=== PATIENT | male | born 1985 | race Two or more races ===

== ENCOUNTER 2016-04-14 03:55 | Emergency (ER) | payer MEDICAID ==
[~2016-04-14] VITALS: Ht 180.3 cm; Wt 104.3 kg
[2016-04-14] MEDS ORDERED: LIDOCAINE 1% INJ 50 ML MDV IJ ONE (06:30)
[2016-04-14 07:16] VITALS: BP 135/78
== END 2016-04-14 07:18 | disposition home or self-care (01) ==
LOC: ER 04:05
DX: S01.312A Laceration without foreign body of left ear, initial encounter (principal); W45.8XXA Other foreign body or object entering through skin, initial encounter; Y93.89 Activity, other specified; Y92.89 Other specified places as the place of occurrence of the external cause; Y99.8 Other external cause status; F17.200 Nicotine dependence, unspecified, uncomplicated
CPT/HCPCS: 13151; 99285; A4606; A6402 ×3; J3490; Z7610

== ENCOUNTER 2017-02-06 14:38 | Emergency (ER) | payer MEDICAID ==
[~2017-02-06] VITALS: Ht 172.7 cm; Wt 99.8 kg
[2017-02-06 15:03] VITALS: BP 112/98
[2017-02-06] MEDS ORDERED: IBUPROFEN 600 MG TABLET PO ONE (16:00)
== END 2017-02-06 15:49 | disposition home or self-care (01) ==
LOC: ER 14:40
DX: Z48.00 Encounter for change or removal of nonsurgical wound dressing (principal); B99.9 Unspecified infectious disease; F17.200 Nicotine dependence, unspecified, uncomplicated; F10.10 Alcohol abuse, uncomplicated
CPT/HCPCS: 99283; A4606; Z7610

== ENCOUNTER 2017-03-16 13:16 | Emergency (ER) | payer MEDICAID ==
[~2017-03-16] VITALS: Ht 180.3 cm; Wt 108.9 kg
--- NOTE | 2017-03-16 13:16 | NUR ---
PT AMBULATORY TO ER BED 11. ANXIOUS, RESTLESS, C/O L SIDED CP/PALPITATION S/P TAKING A TOTAL OF 4 PERCOCET. STATES TOOK 2 PERCOCET AT 1 HOUR INTERVAL. LAST 2 WAS AT 1030 TODAY. ADMIT TO BEEN DRINKING ALCOHOL SINCE LAST NIGHT. GOWNED AND PLACED ON MONITOR. AWAITING MD CAMPOS.
--- NOTE | 2017-03-16 13:20 | NUR ---
IV LINE STARTED BLOOD DRAWN AND SENT TO LAB.
[2017-03-16] MEDS ORDERED: ONDANSETRON HCL/PF 4 MG/2 ML VIAL ONE ×2 (13:51→16:19)
[2017-03-16 13:54] LABS: BASOPHILS # (AUTO) 0.1 /CMM (0.0-0.2); EOSINOPHILS # (AUTO) 0.2 /CMM (0.0-0.7); EOSINOPHILS % (AUTO) 1.9 % (0.0-6.0); HEMATOCRIT 41 % (39-51); LYMPHOCYTES # (AUTO) 4.6 /CMM (0.8-4.8); LYMPHOCYTES % (AUTO) 48.1 % (20.0-44.0); MEAN CORPUSCULAR HEMOGLOBIN 30 PG (26.0-33.0); MEAN CORPUSCULAR HGB CONC 34 g/dl (31.0-36.0); MEAN CORPUSCULAR VOLUME 88 fL (80-96); MONOCYTES # (AUTO) 0.8 /CMM (0.1-1.30); MONOCYTES % (AUTO) 8.1 % (2.0-12.0); NEUTROPHILS % (AUTO) 40.9 % (43.0-81.0); PLATELET COUNT (AUTO) 263 /CMM (150-450); RDW COEFFICIENT OF VARIATION 11.7 (11.5-15.0); RED BLOOD CELL COUNT(AUTO) 4.72 MIL/uL (4.5-6.0); WHITE BLOOD COUNT (AUTO) 9.7 K/uL (4.3-11.0)
[2017-03-16] MEDS: IV NS 0.9% 1,000 ML BAG IV ONE ×2 (13:54→15:09)
[2017-03-16] MEDS: ONDANSETRON HCL/PF 4 MG/2 ML VIAL IVP ONE (13:55)
--- NOTE | 2017-03-16 14:09 | NUR ---
MARTHA PAIZ AT BEDSIDE FOR EVAL.
--- NOTE | 2017-03-16 14:48 | NUR ---
RADIOLOGY AT BEDSIDE FOR CHEST XRAY.
[2017-03-16 15:12] LABS: CALCIUM, SERUM 8.7 mg/dL (8.5-10.1); CREATININE 0.9 mg/dL (0.6-1.3); POTASSIUM 3.7 mmol/L (3.5-5.1)
[2017-03-16 15:15] LABS: EOSINOPHILS % (MANUAL) 1 % (0-4); LYMPHOCYTES % (MANUAL) 37 % (16-48); MONOCYTES % (MANUAL) 4 % (0-11.0); NEUTROPHILS % (MANUAL) 57 (42-76); PROMYELOCYTES % 1 % (0-0)
[2017-03-16 15:23] LABS: SALICYLATE 0.6 mg/dL (2.8-20.0)
[2017-03-16] MEDS: ONDANSETRON HCL/PF 4 MG/2 ML VIAL IV ONE (16:23)
--- NOTE | 2017-03-16 16:23 | NUR ---
PT STATES STILL FEELING NAUSEOUS. MARTHA PAIZ AWARE. ZOFRAN 4MG IVP GIVEN PER VERBAL ORDER.
--- NOTE | 2017-03-16 16:57 | NUR ---
ABLE TO TOLERATE FLUIDS. NO N/V NOTED. AMBULATORY W/ STEADY GAIT. Patient discharged to home in stable condition. Written and verbal after care instructions given. Patient verbalizes understanding of instruction.IV removed. Catheter intact and site benign. Pressure and 4x4 applied to site. No bleeding noted.
[2017-03-16 16:59] VITALS: BP 128/84
== END 2017-03-16 16:59 | disposition home or self-care (01) ==
LOC: ER 13:18
DX: R00.2 Palpitations (principal); R07.89 Other chest pain; F10.10 Alcohol abuse, uncomplicated; F19.10 Other psychoactive substance abuse, uncomplicated; F17.200 Nicotine dependence, unspecified, uncomplicated
CPT/HCPCS: 36415; 71045; 80048; 80305; 80329; 84484; 85025; 93005; 96361; 96374; 96376; 99285; A4606; G0480 ×2; J2405 ×2; J7030 ×2; Z7610

== ENCOUNTER 2017-07-12 14:03 | Emergency (ER) | payer MEDICAID ==
[~2017-07-12] VITALS: Ht 180.3 cm; Wt 102.1 kg
[2017-07-12 14:05] VITALS: BP 146/93
== END 2017-07-12 15:07 | disposition home or self-care (01) ==
LOC: ER 14:12
DX: K08.89 Other specified disorders of teeth and supporting structures (principal); F17.200 Nicotine dependence, unspecified, uncomplicated
CPT/HCPCS: 99283; A4606; Z7610

== ENCOUNTER 2017-10-21 10:18 | Emergency (ER) | payer MEDICAID ==
[~2017-10-21] VITALS: Ht 177.8 cm; Wt 117.0 kg
--- NOTE | 2017-10-21 10:44 | NUR ---
Line started on L FA G 20, blood drawn from line and sent to lab
[2017-10-21 10:54] LABS: BASOPHILS # (AUTO) 0.2 /CMM (0.0-0.2); BASOPHILS % (AUTO) 2.3 % (0.0-2.0); EOSINOPHILS % (AUTO) 0.7 % (0.0-6.0); HEMATOCRIT 43 % (39-51); HEMOGLOBIN 14.6 g/dL (13.5-17.5); LYMPHOCYTES # (AUTO) 2.2 /CMM (0.8-4.8); LYMPHOCYTES % (AUTO) 23.4 % (20.0-44.0); MEAN CORPUSCULAR HEMOGLOBIN 30 PG (26.0-33.0); MEAN CORPUSCULAR HGB CONC 34 g/dl (31.0-36.0); MEAN CORPUSCULAR VOLUME 88 fL (80-96); MONOCYTES # (AUTO) 0.6 /CMM (0.1-1.30); NEUTROPHILS # (AUTO) 6.1 /CMM (1.8-8.9); NEUTROPHILS % (AUTO) 67.6 % (43.0-81.0); PLATELET COUNT (AUTO) 295 /CMM (150-450); RDW COEFFICIENT OF VARIATION 11.6 (11.5-15.0); RED BLOOD CELL COUNT(AUTO) 4.94 MIL/uL (4.5-6.0); WHITE BLOOD COUNT (AUTO) 9.2 K/uL (4.3-11.0)
[2017-10-21 11:06] LABS: CALCIUM, SERUM 9.1 mg/dL (8.5-10.1); CARBON DIOXIDE 27 mmol/L (21-32); CHLORIDE 106 mmol/L (98-107); CREATININE 0.8 mg/dL (0.6-1.3); GLUCOSE 104 mg/dL (74-106); POTASSIUM 4.1 mmol/L (3.5-5.1); SODIUM SERUM 140 mmol/L (136-145); UREA NITROGEN, BLOOD 12 mg/dL (7-18)
[2017-10-21 11:14] LABS: TROPONIN I < 0.017 ng/mL (0.00-0.056)
--- NOTE | 2017-10-21 11:47 | NUR ---
IV removed. Catheter intact and site benign. Pressure and 4x4 applied to site. No bleeding noted.
--- NOTE | 2017-10-21 11:47 | NUR ---
PT. VERBALIZED UNDERSTANDING OF AFTERCARE INSTRUCTIONS.Patient discharged to home in stable condition. Written and verbal after care instructions given. Patient verbalizes understanding of instruction.
[2017-10-21 11:48] VITALS: BP 132/80
== END 2017-10-21 11:48 | disposition home or self-care (01) ==
LOC: ER 10:19
DX: R53.1 Weakness (principal); F17.200 Nicotine dependence, unspecified, uncomplicated
CPT/HCPCS: 36415; 71045; 80048; 84484; 85025; 93005; 99285; A4606; Z7610

== ENCOUNTER 2018-08-08 22:10 | Emergency (ER) | payer MEDICAID ==
[~2018-08-08] VITALS: Ht 180.3 cm; Wt 104.3 kg
[2018-08-08 23:06] VITALS: BP 151/81
[2018-08-08] MEDS ORDERED: TETRACAINE HCL/PF 0.5% UD 2 ML BOTTLE EACHEYE ONE (23:30)
[2018-08-08] MEDS ORDERED: FLUORESCEIN SODIUM OPHTH 1 EA STRIP OP ONE (23:30)
[2018-08-09] MEDS ORDERED: FLUORESCEIN SODIUM OPHTH 1 EA STRIP ONE ×2 (00:19→00:49)
[2018-08-09] MEDS ORDERED: TETRACAINE HCL/PF 0.5% UD 2 ML BOTTLE ONE (00:19)
== END 2018-08-09 01:09 | disposition home or self-care (01) ==
LOC: ER 22:12
DX: T15.82XA Foreign body in other and multiple parts of external eye, left eye, initial encounter (principal); T15.81XA Foreign body in other and multiple parts of external eye, right eye, initial encounter; F17.200 Nicotine dependence, unspecified, uncomplicated; X58.XXXA Exposure to other specified factors, initial encounter; Y93.89 Activity, other specified; Y92.89 Other specified places as the place of occurrence of the external cause; Y99.0 Civilian activity done for income or pay
CPT/HCPCS: 99283; J7030 ×2

== ENCOUNTER 2019-03-22 22:31 | Emergency (ER) | payer MEDICAID ==
[~2019-03-22] VITALS: Ht 180.3 cm; Wt 117.9 kg
[2019-03-23] MEDS ORDERED: KETOROLAC TROMETHAMINE INJ 30 MG/ML VIAL ONE (00:12)
[2019-03-23] MEDS ORDERED: KETOROLAC TROMETHAMINE INJ 60 MG/2 ML VIAL IM ONE (00:30)
--- NOTE | 2019-03-23 01:50 | NUR ---
Patient discharged to home in stable condition. Written and verbal after care instructions given. Patient verbalizes understanding of instruction.
[2019-03-23 01:51] VITALS: BP 158/87
== END 2019-03-23 01:51 | disposition home or self-care (01) ==
LOC: ER 22:33
DX: M25.572 Pain in left ankle and joints of left foot (principal); R00.2 Palpitations
CPT/HCPCS: 73610; 93005; 96372; 99283; J1885

== ENCOUNTER → 2020-08-23 | Emergency (ER) | payer MEDICAID ==
[~2020-08-23] VITALS: Ht 185.4 cm; Wt 113.4 kg
[~2020-08-23] MED LIST: CLIN50GE7 TP
--- NOTE | 2020-08-23 14:59 | NUR ---
THE PATIENT BIBS FOR C/O RASH TO BACK X 1 WEEK. WILL CONTINUE TO MONITOR THE PATIENT.
[2020-08-23 16:17] VITALS: BP 141/74
--- NOTE | 2020-08-23 16:17 | NUR ---
Patient discharged to home in stable condition. Written and verbal after care instructions given. Patient verbalizes understanding of instruction.
--- NOTE | 2020-08-23 16:18 | NUR ---
unable to depart the patient from [facility]
== END | disposition home or self-care (01) ==
LOC: ER 14:45
DX: L70.0 Acne vulgaris (principal); F10.10 Alcohol abuse, uncomplicated; Y90.9 Presence of alcohol in blood, level not specified; Z79.899 Other long term (current) drug therapy

== ENCOUNTER 2020-10-12 14:16 | Emergency (ER) | payer MEDICAID ==
[~2020-10-12] VITALS: Ht 182.9 cm; Wt 108.9 kg
[2020-10-12 14:50] LABS: BASOPHILS # (AUTO) 0.1 K/uL (0.0-0.2); BASOPHILS % (AUTO) 0.8 % (0.0-2.0); HEMATOCRIT 47 % (39-51); HEMOGLOBIN 15.5 g/dL (13.5-17.5); LYMPHOCYTES # (AUTO) 1.4 K/uL (0.8-4.8); LYMPHOCYTES % (AUTO) 10.1 % (20.0-44.0); MEAN CORPUSCULAR HGB CONC 33 g/dl (31.0-36.0); MEAN CORPUSCULAR VOLUME 96 fL (80-96); MONOCYTES # (AUTO) 1.3 K/uL (0.1-1.30); NEUTROPHILS # (AUTO) 11.1 K/uL (1.8-8.9); NEUTROPHILS % (AUTO) 80.1 % (43.0-81.0); PLATELET COUNT (AUTO) 261 K/uL (150-450); RED BLOOD CELL COUNT(AUTO) 4.89 MIL/uL (4.5-6.0); WHITE BLOOD COUNT (AUTO) 13.9 K/uL (4.3-11.0)
[2020-10-12] MEDS ORDERED: ONDANSETRON HCL/PF 4 MG/2 ML VIAL ONE (14:51)
[2020-10-12 15:05] LABS: BILIRUBIN,DIRECT 0.6 mg/dL (0.0-0.2); BILIRUBIN,TOTAL 2.1 mg/dL (0.2-1.0); CALCIUM, SERUM 9.7 mg/dL (8.5-10.1); CREATININE 1.3 mg/dL (0.6-1.3); POTASSIUM 4.3 mmol/L (3.5-5.1); TOTAL PROTEIN, SERUM 8.3 g/dL (6.4-8.2)
[2020-10-12] MEDS: ONDANSETRON HCL/PF 4 MG/2 ML VIAL IVP ONE (15:05)
[2020-10-12] MEDS: IV NS 0.9% 1,000 ML BAG IV ONE ×3 (15:05→17:14)
--- NOTE | 2020-10-12 15:11 | NUR ---
Patient came in to the er c/o nausea, unable to keep food in. Polydipsia x 4 days. On room air, breathing evenly and unlabored. COnnected to the monitor and pulse ox. kept comfortable, will continue to monitor accordingly.
[2020-10-12 15:22] LABS: BILIRUBIN,URINE Negative (NEGATIVE); COLOR,URINE YELLOW (YELLOW); LEUKOCYTE ESTERASE ,URINE Negative (NEGATIVE); NITRITE, URINE Negative (NEGATIVE); PROTEIN,URINE Negative (NEGATIVE); UGLUCOSE 500 MG/DL mg/dL (NEGATIVE); UROBILINOGEN,URINE 0.2 EU/dL (0.2)
[2020-10-12] MEDS ORDERED: INSULIN REGULAR, HUMAN 100 UNIT/ML 10 ML VIAL ONE (15:46)
[2020-10-12] MEDS: INSULIN REGULAR, HUMAN 100 UNIT/ML 10 ML VIAL SQ ONE ×2 (15:49→17:15)
[2020-10-12] MEDS ORDERED: METF-440 PO (17:29)
[2020-10-12 18:15] VITALS: BP 135/71
--- NOTE | 2020-10-12 18:20 | NUR ---
Patient discharged to home in stable condition. Written and verbal after care instructions given. Patient verbalizes understanding of instruction.IV removed. Catheter intact and site benign. Pressure and 4x4 applied to site. No bleeding noted.
== END 2020-10-12 18:20 | disposition home or self-care (01) ==
LOC: ER 14:19
DX: E11.65 Type 2 diabetes mellitus with hyperglycemia (principal); Z79.84 Long term (current) use of oral hypoglycemic drugs
CPT/HCPCS: 36415; 80048; 80076; 81003; 82962 ×2; 83690; 85025; 96361; 96372 ×2; 96374; 99284; J1815; J2405; J7030 ×2

== ENCOUNTER 2020-11-06 19:08 | Emergency (ER) | payer MEDICAID ==
[~2020-11-06] VITALS: Ht 180.3 cm; Wt 108.9 kg
[~2020-11-06 19:08] MED LIST changes: +METF-440 PO
[2020-11-06] MEDS ORDERED: LORAZEPAM 1 MG TABLET ONE (19:51)
[2020-11-06] MEDS ORDERED: IBUPROFEN 600 MG TABLET ONE (19:52)
[2020-11-06] MEDS ORDERED: IBUPROFEN 600 MG TABLET PO ONE (20:00)
[2020-11-06] MEDS ORDERED: LORAZEPAM 1 MG TABLET PO ONE (20:00)
[2020-11-06 20:01] LABS: BASOPHILS # (AUTO) 0.1 K/uL (0.0-0.2); BASOPHILS % (AUTO) 1.1 % (0.0-2.0); EOSINOPHILS % (AUTO) 0.7 % (0.0-6.0); HEMATOCRIT 39 % (39-51); HEMOGLOBIN 13.6 g/dL (13.5-17.5); LYMPHOCYTES # (AUTO) 2.3 K/uL (0.8-4.8); LYMPHOCYTES % (AUTO) 22.6 % (20.0-44.0); MEAN CORPUSCULAR HGB CONC 35 g/dl (31.0-36.0); MEAN CORPUSCULAR VOLUME 95 fL (80-96); MONOCYTES % (AUTO) 10.3 % (2.0-12.0); NEUTROPHILS # (AUTO) 6.6 K/uL (1.8-8.9); NEUTROPHILS % (AUTO) 65.3 % (43.0-81.0); PLATELET COUNT (AUTO) 211 K/uL (150-450); RED BLOOD CELL COUNT(AUTO) 4.15 MIL/uL (4.5-6.0); WHITE BLOOD COUNT (AUTO) 10.1 K/uL (4.3-11.0)
--- NOTE | 2020-11-06 20:02 | NUR ---
Note undone in EDM - 11/06/20 at 2005 by EMMA PT BIB SELF, DUE TO CHEST PAIN 10, 2 HOURS AGO. AT THIS TIME PT HAS REC'D MEDICATION AND VERBALIZES 4/10 PAIN. PT SMOKED VAPE FOR PAST TWO YEARS. STOPPED THIS MONTH HE HAS INCREASED CHEST DISCOMFORT. PT DENIES DRINKING AT THIS TIME. HAS IN THE PAST, STOPPED ONCE HE FOUND OUT HE HAS DIABETES. PT IS VACCINATED WITHPAPO AND PAPO. PT ON MONITOR. NEEDS ATTENDED. WILL CONT TO MONITOR
--- NOTE | 2020-11-06 20:07 | NUR ---
PT BIB SELF, DUE TO CHEST PAIN 10/10, 2 HOURS AGO. AT THIS TIME PT HAS REC'D MEDICATION AND VERBALIZES 4/10 PAIN. PT SMOKED VAPE FOR PAST TWO YEARS. STOPPED THIS MONTH HE HAS INCREASED CHEST DISCOMFORT. PT DENIES DRINKING AT THIS TIME. HAS IN THE PAST, STOPPED ONCE HE FOUND OUT HE HAS DIABETES. PT IS VACCINATED WITH PAPO AND PAPO. PT ON MONITOR. NEEDS ATTENDED. WILL CONT TO MONITOR
[2020-11-06 21:16] LABS: ALANINE AMINOTRANSFERASE 235 U/L (12-78); ALBUMIN 3.8 g/dL (3.4-5.0); ALKALINE PHOSPHATASE 110 U/L (46-116); ASPARTATE AMINOTRANSFERASE 177 U/L (15-37); BILIRUBIN,DIRECT 0.3 mg/dL (0.0-0.2); BILIRUBIN,TOTAL 1.2 mg/dL (0.2-1.0); CALCIUM, SERUM 8.4 mg/dL (8.5-10.1); CARBON DIOXIDE 24 mmol/L (21-32); CHLORIDE 105 mmol/L (98-107); CREATININE 0.9 mg/dL (0.6-1.3); GLUCOSE 100 mg/dL (74-106); POTASSIUM 3.9 mmol/L (3.5-5.1); SODIUM SERUM 143 mmol/L (136-145); TOTAL PROTEIN, SERUM 6.7 g/dL (6.4-8.2); UREA NITROGEN, BLOOD 9 mg/dL (7-18)
--- NOTE | 2020-11-06 22:20 | NUR ---
US TECH AT BED SIDE
[2020-11-06] MEDS ORDERED: IBUP-1955 PO (22:48)
[2020-11-06 22:56] VITALS: BP 124/68
--- NOTE | 2020-11-06 22:56 | NUR ---
IV removed. Catheter intact and site benign. Pressure and 4x4 applied to site. No bleeding noted.Patient discharged to home in stable condition. Written and verbal after care instructions given. Patient verbalizes understanding of instruction.
== END 2020-11-06 22:56 | disposition home or self-care (01) ==
LOC: EDBD 19:09 → ER 19:09
DX: R07.89 Other chest pain (principal); K76.0 Fatty (change of) liver, not elsewhere classified; E11.9 Type 2 diabetes mellitus without complications; Z79.899 Other long term (current) drug therapy; Z79.84 Long term (current) use of oral hypoglycemic drugs
CPT/HCPCS: 36415; 71045-TC; 76705-TC; 80048-TC; 80076-TC; 83690-TC; 84484-TC; 85025-TC

== ENCOUNTER 2022-07-04 23:10 | Emergency (ER) | payer MEDICAID ==
[~2022-07-04] VITALS: Ht 182.9 cm; Wt 95.3 kg
[~2022-07-04 23:10] MED LIST changes: +IBUP-1955 PO
--- NOTE | 2022-07-04 23:38 | NUR ---
BIBS FOR BILATERAL FLANK PAIN TODAY. HAD AN EPISODE OF MAL ODORS OF URINE LAST WEEK. + DYSURIA, - HEMATURIA. PT CHANGING IN GOWN. PT A/OX4. TOLERATING R/A WELL WITH NO RESP DISTRESS. AMB WITH STEADY. CONNECTED PT TO POX AND MONITOR. SAFETY MEASURES IN PLACE.
--- NOTE | 2022-07-04 23:41 | NUR ---
URINE COLLECTED AND SENT TO LAB
--- NOTE | 2022-07-04 23:44 | NUR ---
DR MARIANNA MITCHELL AT PT'S BEDSIDE FOR EVAL
--- NOTE | 2022-07-04 23:58 | NUR ---
RAC #20G S/L BLOOD COLLECTED AND SENT TO LAB
[2022-07-04] MEDS ORDERED: ONDANSETRON HCL/PF 4 MG/2 ML VIAL ONE (23:59)
[2022-07-04] MEDS ORDERED: KETOROLAC TROMETHAMINE INJ 30 MG/ML VIAL ONE (23:59)
[2022-07-05] MEDS ORDERED: ONDANSETRON HCL/PF 4 MG/2 ML VIAL IVP ONE
[2022-07-05] MEDS ORDERED: KETOROLAC TROMETHAMINE INJ 30 MG/ML VIAL IV ONE
[2022-07-05] MEDS ORDERED: IV NS 0.9% 1,000 ML BAG IV ONE
[2022-07-05 00:04] LABS: BASOPHILS # (AUTO) 0.1 K/uL (0.0-0.2); BASOPHILS % (AUTO) 0.5 % (0.0-2.0); EOSINOPHILS % (AUTO) 1.5 % (0.0-6.0); HEMATOCRIT 40 % (39-51); HEMOGLOBIN 13.2 g/dL (13.5-17.5); LYMPHOCYTES # (AUTO) 1.8 K/uL (0.8-4.8); LYMPHOCYTES % (AUTO) 15.6 % (20.0-44.0); MEAN CORPUSCULAR HGB CONC 33 g/dl (31.0-36.0); MEAN CORPUSCULAR VOLUME 91 fL (80-96); MONOCYTES # (AUTO) 1.3 K/uL (0.1-1.30); MONOCYTES % (AUTO) 11.6 % (2.0-12.0); NEUTROPHILS % (AUTO) 70.8 % (43.0-81.0); PLATELET COUNT (AUTO) 274 K/uL (150-450); RED BLOOD CELL COUNT(AUTO) 4.41 MIL/uL (4.5-6.0); WHITE BLOOD COUNT (AUTO) 11.3 K/uL (4.3-11.0)
[2022-07-05 00:14] LABS: BILIRUBIN,URINE NEGATIVE (NEGATIVE); COLOR,URINE YELLOW (YELLOW); LEUKOCYTE ESTERASE ,URINE 2+ (NEGATIVE); NITRITE, URINE NEGATIVE (NEGATIVE); PH,URINE 6.5 (5.0-8.0); PROTEIN,URINE 2+ mg/dl (NEGATIVE); UGLUCOSE NEGATIVE (NEGATIVE); UROBILINOGEN,URINE 0.2 EU/dL (0.2)
[2022-07-05 00:19] LABS: BACTERIA,URINE Few /HPF (None Seen); SQUAMOUS EPITHELIAL CELL,UR Few /HPF (None Seen)
--- NOTE | 2022-07-05 00:30 | NUR ---
PT TAKEN TO CT VIA [facility]
[2022-07-05 00:35] LABS: CALCIUM, SERUM 8.9 mg/dL (8.5-10.1); CREATININE 1.1 mg/dL (0.6-1.3); POTASSIUM 4.1 mmol/L (3.5-5.1)
[2022-07-05 00:41] LABS: ALBUMIN 3.5 g/dL (3.4-5.0); BILIRUBIN,DIRECT 0.1 mg/dL (0.0-0.2); BILIRUBIN,TOTAL 0.6 mg/dL (0.2-1.0); TOTAL PROTEIN, SERUM 6.9 g/dL (6.4-8.2)
[2022-07-05] MEDS ORDERED: CIPR-262 PO (02:09)
[2022-07-05] MEDS ORDERED: IBUP-1957 PO (02:09)
[2022-07-05] MEDS ORDERED: CIPROFLOXACIN HCL 500 MG TABLET ONE (02:13)
--- NOTE | 2022-07-05 02:17 | NUR ---
Patient discharged to home in stable condition. Written and verbal after care instructions given. Patient verbalizes understanding of instruction. IV removed. Catheter intact and site benign. Pressure and 4x4 applied to site. No bleeding noted. PT ambulatory with a steady gait
[2022-07-05 02:18] VITALS: BP 109/67
[2022-07-05] MEDS ORDERED: CIPROFLOXACIN HCL 500 MG TABLET PO ONE (02:30)
== END 2022-07-05 02:31 | disposition home or self-care (01) ==
LOC: ER 23:17
DX: N20.0 Calculus of kidney (principal); N39.0 Urinary tract infection, site not specified; Z79.899 Other long term (current) drug therapy
CPT/HCPCS: 99285; 74176; 96361; 85025; 80048; 87086; 83690; 80076; 81001; 36415; 85730; 96374; 96375; J1885; J2405; J7030

== ENCOUNTER 2023-03-12 21:26 | Emergency (ER) | payer MEDICAID ==
[~2023-03-12] VITALS: Ht 180.3 cm; Wt 102.1 kg
[~2023-03-12 21:26] MED LIST changes: +CEPH500C2 PO; +CIPR-262 PO; +IBUP-1957 PO
[2023-03-12] MEDS ORDERED: KETOROLAC TROMETHAMINE INJ 30 MG/ML VIAL ONE (22:50)
[2023-03-12] MEDS ORDERED: KETOROLAC TROMETHAMINE INJ 60 MG/2 ML VIAL IM ONE (23:00)
[2023-03-12] MEDS ORDERED: ACET-2605 PO (23:40)
[2023-03-12] MEDS ORDERED: IBUP-1957 PO (23:40)
[2023-03-12 23:51] VITALS: BP 134/79; TEMP 98.1; O2SAT 98
== END 2023-03-13 00:15 | disposition home or self-care (01) ==
LOC: ER 21:30
DX: M25.572 Pain in left ankle and joints of left foot (principal); M79.672 Pain in left foot; Z79.899 Other long term (current) drug therapy
CPT/HCPCS: 99284; 96372; 73610; 73630; J1885